=== PATIENT | female | born 1960 | race Caucasian/White ===

== ENCOUNTER → 2016-07-23 | Outpatient (CLI) | payer OTHER, SELFPAY ==
--- NOTE | 2016-07-24 10:46 | CT ---
Procedure: CT HEAD WITHOUT IV CONTRAST Exam date: 07/23/2016 8:55 AM CDT Ordering Provider: JOYCELYN JORDAN Clinical Indication: HEAT STROKE Comparison: None Technique: Using a helical scanner, sequential axial imaging of the brain was obtained without the administration of intravenous contrast. The exam was obtained from the skull base to vertex. Findings: Ventricular size and configuration are normal. There is no midline shift or hydrocephalus. There is no acute intracranial hemorrhage or mass effect. There is no CT evidence for acute cortical infarct. Normal-appearing browning and white matter with appropriate sulcation and normal parenchymal volume. The calvarium is intact. There is no fracture. There is no lytic or sclerotic lesion. The visualized paranasal sinuses and mastoid air cells are clear. IMPRESSION: 1. Negative CT scan of the brain without intravenous contrast administration. Electronically signed by: Brown Christianson MD 07/24/2016 10:45 AM CDT
== END | disposition home or self-care (01) ==
LOC: CT 08:43
PROVIDERS: ATTEND Obstetrics & Gynecology
DX: T67.0XXA Heatstroke and sunstroke, initial encounter (principal); X58.XXXA Exposure to other specified factors, initial encounter